=== PATIENT | male | born 1975 | race Caucasian/White ===

== ENCOUNTER 2020-10-31 08:44 | Emergency (ER) | payer OTHER ==
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
[2020-10-31 09:51] LABS: Hematocrit 47.1 % (42-50); Hemoglobin 15.5 gm/dl (12.5-18.0); Mean Cell Volume 92.7 fl (78-100); Mean Corpuscular Hemoglobin 30.5 pg (26-32); Mean Corpuscular Hgb Concent. 32.9 g/dl (32-36); Mean Platelet Volume 12.4 fl (7.5-11.0); Platelet Count 44 K/mm3 (150-450); Red Blood Count 5.08 M/mm3 (4.1-5.6); Red Cell Distribution Width 13.1 % (11.5-14.0); White Blood Count 4.4 K/mm3 (4.0-10.5)
[2020-10-31 09:56] LABS: ALBUMIN 3.2 g/dL (3.5-5.0); ALKALINE PHOSPHATASE 276 U/L (38-126); ANION GAP 14.1 MEQ/L (5-15); BLOOD UREA NITROGEN 14 mg/dL (9-20); CHLORIDE 101 mmol/L (98-107); Calcium 8.6 mg/dL (8.4-10.2); Carbon Dioxide 23 mmol/L (22-30); Creatinine 1 0.98 mg/dL (0.66-1.25); EST GLOMERULAR FILTRATION RATE > 60.0 ML/MIN; Glucose 108 mg/dL (74-106); SGOT/AST 62 U/L (17-59); SGPT/ALT 97 U/L (0-50); SODIUM 134 mmol/L (137-145); Total Protein 6.5 g/dL (6.3-8.2)
[2020-10-31] MEDS ORDERED: ENOXAPARIN SODIUM SQ STA (10:28)
[2020-10-31] MEDS ORDERED: Sodium Chloride 0.9% 1000 ML 1,000 ML IV STA (10:29)
[2020-10-31 10:35] VITALS: O2SAT 98
[2020-10-31 10:48] LABS: Slide Review YES
[2020-10-31] MEDS ORDERED: Sodium Chloride 0.9% 1000 ML 1,000 ML ONE (11:32)
[2020-10-31] MEDS ORDERED: ENOXAPARIN SODIUM SQ ONE (11:32)
[2020-10-31 14:15] VITALS: BP 112/81; PULSE 91
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
== END 2020-10-31 14:15 | disposition home or self-care (01) ==
LOC: ED 08:44
DX: S80.812A Abrasion, left lower leg, initial encounter (principal); R51.9 Headache, unspecified; R50.9 Fever, unspecified; R06.02 Shortness of breath; R43.8 Other disturbances of smell and taste; M79.18 Myalgia, other site; R53.83 Other fatigue; Z20.822 Contact with and (suspected) exposure to COVID-19
CPT/HCPCS: 36000; 36415; 71046; 71260; 74177; 80053; 85027; 85379; 96372; 99284; 99291; U0003; J1650

== ENCOUNTER 2020-12-17 15:34 | Observation (INO) | payer OTHER ==
[2020-12-17] MEDS ORDERED: Adacel Vial IM ONE ×2 (17:15→17:32)
[2020-12-17] MEDS ORDERED: CLINDAMYCIN-D5W 600 MG/50 ML*** 600 MG/50 ML BAG IV STA (17:15)
[2020-12-17] MEDS ORDERED: Sodium Chloride 0.9% 1000 ML 1,000 ML IV STA (17:15)
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
[2020-12-17] MEDS ORDERED: CLINDAMYCIN-D5W 600 MG/50 ML*** 600 MG/50 ML BAG IV ONE (17:32)
[2020-12-17] MEDS ORDERED: Sodium Chloride 0.9% 1000 ML 1,000 ML ONE (17:32)
[2020-12-17 17:45] LABS: Absolute Neutrophil Ct (ANC) 6.65 (1.4-6.9); BASOPHIL % 0.3 % (0.0-0.4); Basophil (Absolute #) 0.03 (0-0.4); Eosinophil % 1.2 % (0.00-5.0); Eosinophil (Absolute #) 0.11 (0-0.5); Hematocrit 43.2 % (42-50); Lymphocytes % 20.1 % (24.0-44.0); Mean Cell Volume 92.7 fl (78-100); Mean Corpuscular Hgb Concent. 32.4 g/dl (32-36); Mean Platelet Volume 9.4 fl (7.5-11.0); Monocyte (Absolute #) 0.78 (0.0-1.3); Monocytes % 8.2 % (0.0-12.0); Neutrophil % 70.2 % (36.0-66.0); Platelet Count 337 K/mm3 (150-450); Red Blood Count 4.66 M/mm3 (4.1-5.6); White Blood Count 9.5 K/mm3 (4.0-10.5)
[2020-12-17 18:01] LABS: ALKALINE PHOSPHATASE 124 U/L (38-126); ANION GAP 14.4 MEQ/L (5-15); BLOOD UREA NITROGEN 15 mg/dL (9-20); CHLORIDE 100 mmol/L (98-107); Calcium 9.3 mg/dL (8.4-10.2); Carbon Dioxide 27 mmol/L (22-30); Creatinine 1 1.13 mg/dL (0.66-1.25); EST GLOMERULAR FILTRATION RATE > 60.0 ML/MIN; Glucose 96 mg/dL (74-106); Potassium 4.1 mmol/L (3.5-5.1); SGOT/AST 20 U/L (17-59); SGPT/ALT 20 U/L (0-50); SODIUM 137 mmol/L (137-145); Total Protein 7.6 g/dL (6.3-8.2)
[2020-12-17] MEDS ORDERED: MORPHINE SULFATE 2 MG INJ IV PRN (18:35)
[2020-12-17] MEDS ORDERED: TYLENOL 325 MG PO PRN (18:35)
[2020-12-17] MEDS ORDERED: Sodium Chloride 0.9% 1000 ML 1,000 ML IV SCH (18:45)
[2020-12-18] MEDS: CLINDAMYCIN-D5W 600 MG/50 ML*** 600 MG/50 ML BAG IV SCH ×2 (01:00→08:49)
[2020-12-18 05:06] LABS: Absolute Neutrophil Ct (ANC) 4.59 (1.4-6.9); BASOPHIL % 0.5 % (0.0-0.4); Basophil (Absolute #) 0.04 (0-0.4); Eosinophil (Absolute #) 0.15 (0-0.5); Hematocrit 40.2 % (42-50); Lymphocyte (Absolute #) 1.94 (1.0-4.6); Lymphocytes % 25.9 % (24.0-44.0); Mean Cell Volume 94.1 fl (78-100); Mean Corpuscular Hemoglobin 30.4 pg (26-32); Mean Corpuscular Hgb Concent. 32.3 g/dl (32-36); Mean Platelet Volume 9.4 fl (7.5-11.0); Monocyte (Absolute #) 0.77 (0.0-1.3); Monocytes % 10.3 % (0.0-12.0); Neutrophil % 61.3 % (36.0-66.0); Platelet Count 319 K/mm3 (150-450); Red Blood Count 4.27 M/mm3 (4.1-5.6); White Blood Count 7.5 K/mm3 (4.0-10.5)
[2020-12-18 05:19] LABS: ALBUMIN 3.3 g/dL (3.5-5.0); ALKALINE PHOSPHATASE 102 U/L (38-126); BLOOD UREA NITROGEN 13 mg/dL (9-20); CHLORIDE 107 mmol/L (98-107); Calcium 8.4 mg/dL (8.4-10.2); Carbon Dioxide 25 mmol/L (22-30); Creatinine 1 1.02 mg/dL (0.66-1.25); EST GLOMERULAR FILTRATION RATE > 60.0 ML/MIN; Glucose 100 mg/dL (74-106); SGOT/AST 19 U/L (17-59); SGPT/ALT 16 U/L (0-50); SODIUM 138 mmol/L (137-145); Total Protein 6.4 g/dL (6.3-8.2)
[2020-12-18 08:23] VITALS: BP 112/75; PULSE 74; O2SAT 98
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
--- NOTE | 2020-12-30 20:48 | PCM.SSS ---
History of Present Illness - Chief Complaint Chief Complaint: left leg cellulitis Date: 12/18/20 History of Present Illness: is a 45 year old male. Presented to ER after failing outpatient treatment of leg cellulitis. Pt. admitted to start iv antibiotics to ensure improvement. - Review of Systems Constitutional: No Fever, No Chills Eyes: No Symptoms Ears, Nose, & Throat: No Symptoms Respiratory: No Cough, No Short Of Breath Cardiac: No Chest Pain, No Edema, No Syncope Abdominal/Gastrointestinal: No Abdominal Pain, No Nausea, No Vomiting, No Diarrhea Genitourinary Symptoms: No Dysuria Musculoskeletal: No Back Pain, No Neck Pain Skin: Cellulitis, No Rash Neurological: No Dizziness, No Focal Weakness, No Sensory Changes Psychological: No Symptoms Endocrine: No Symptoms Hematologic/Lymphatic: No Symptoms Immunological/Allergic: No Symptoms Medications & Allergies Home Medications: Home Medication List No Reportable Medications [No Reported Medications] 10/31/20 [History Confirmed 12/17/20] Allergies/Adverse Reactions: Allergies Allergy/AdvReac Type Severity Reaction Status Date / Time No Known Drug Allergies Allergy Verified 12/17/20 15:42 - Past Medical History Past Medical History: No Neurological History: No Pertinent History ENT History: No Pertinent History Cardiac History: No Pertinent History Respiratory History: No Pertinent History Endocrine Medical History: No Pertinent History Musculoskelatal History: No Pertinent History GI Medical History: No Pertinent History History: No Pertinent History Pyscho-Social History: No Pertinent History Male Reproductive Disorders: No Pertinent History - Past Surgical History Past Surgical History: No Neuro Surgical History: No Pertinent History Cardiac History: No Pertinent History Respiratory Surgery: No Pertinent History GI Surgical History: No Pertinent History Genitourinary Surgical Hx: No Pertinent History Musculskeletal Surgical Hx: No Pertinent History Male Surgical History: No Pertinent History - Social History Smoking Status: Never smoker How long have you smoked: 0.5 Exposure to second hand smoke: No Alcohol: None Drug Use: none - Physical Exam General Appearance: no apparent distress, alert Neurologic Exam: alert, oriented x 3, cooperative, normal mood/affect, nml cerebellar function, nml station & gait, sensation nml, No motor deficits Eye Exam: PERRL/EOMI, eyes nml inspection Ears, Nose, Throat Exam: normal ENT inspection, pharynx normal, moist mucous mem branes Neck Exam: normal inspection, non-tender, supple, full range of motion Respiratory Exam: normal breath sounds, lungs clear, No respiratory distress Cardiovascular Exam: regular rate/rhythm, normal heart sounds, normal peripheral pulses Gastrointestinal/Abdomen Exam: soft, normal bowel sounds, No tenderness, No mass Back Exam: normal inspection, normal range of motion, No CVA tenderness, No vertebral tenderness Extremity Exam: normal inspection, normal range of motion, pelvis stable Skin Exam: normal color, warm, dry, No rash Lymphatic Exam: No adenopathy Results - Labs Lab/Micro Results: Microbiology 12/17/20 17:15 Blood Culture Gram Stain - Final Blood Not Reportable Blood Culture - Final NO GROWTH Assessment/Plan (1) Left leg cellulitis Status: Acute Code(s): L03.116 - CELLULITIS OF LEFT LOWER LIMB Hospital Summary - Hospital Course Hospital Course: Pt. started on iv antibiotics and by the following am the patient noted marked improvement and was ready for discharge. Pt. was placed on iv form of po antibiotics placed on less than 24 hours prior to presentation to er, which was very effective, upon discharge he will continue previously prescribed antibiotic. - Vitals & Intake/Output Vital Signs: Vital Signs Temperature 97.3 F 12/18/20 08:00 Pulse Rate 74 12/18/20 08:00 Respiratory Rate 20 12/18/20 08:00 Blood Pressure 112/75 12/18/20 08:00 O2 Sat by Pulse Oximetry 98 12/18/20 08:00 - Lab Result Diagrams: 12/18/20 04:36 12/18/20 04:36 Micro Results-Entire Visit: Microbiology 12/17/20 17:15 Blood Culture Gram Stain - Final Blood Not Reportable Blood Culture - Final NO GROWTH - Discharge Discharge Date: 12/18/20 Disposition: Home, Self-Care Condition: Stable Prescriptions: No Action No Reportable Medications [No Reported Medications] Instructions: Cellulitis (Skin Infection), Adult (DC) Follow up with: KRISTINA GONSALVES MD [ACTIVE STAFF] - 12/22/20 3:15 pm
== END 2020-12-18 10:04 | disposition home or self-care (01) ==
LOC: ED 15:34 → MED SURG 21:25
PROVIDERS: ADMIT Family Medicine; ATTEND Family Medicine
DX: L03.116 Cellulitis of left lower limb (principal); M25.562 Pain in left knee; Z20.822 Contact with and (suspected) exposure to COVID-19
CPT/HCPCS: 36000; 36415; 80053; 83605; 85025; 87040; 90471; 93268; 93971; 99285; G0378; U0003; 90715